=== PATIENT | female | born 1995 | race Caucasian/White ===

== ENCOUNTER 2018-12-03 20:51 | Emergency (ER) | payer SELFPAY ==
[~2018-12-03] VITALS: Ht 172.7 cm; Wt 54.0 kg
[2018-12-04 01:15] VITALS: BP 124/83
[2018-12-04 01:49] LABS: CLARITY URINE CLEAR (CLEAR); COLOR URINE YELLOW (YELLOW); KETONES URINE TRACE (NEGATIVE); LEUKOCYTE ESTERASE URINE 2+ (NEGATIVE); NITRITE URINE NEGATIVE (NEGATIVE); OCCULT BLOOD URINE NEGATIVE (NEGATIVE); PH URINE 5.5 (4.5-8.0); PROTEIN URINE NEGATIVE (NEGATIVE); UROBILINOGEN URINE 0.2 E.U./dL (0.2-1.0)
[2018-12-09 08:12] LABS: CHLAMYDIA TRACHOMATIS NAA Negative (Negative); NEISSERIA GONORRHOEAE NAA Equivocal (Negative)
== END 2018-12-04 01:25 | disposition left against medical advice (07) ==
LOC: ER 20:51
DX: N89.8 Other specified noninflammatory disorders of vagina (principal)
CPT/HCPCS: 81003; 87491; 87591; 99283

== ENCOUNTER 2024-08-10 18:17 | Inpatient (IN) | payer MEDICAID ==
[~2024-08-10] VITALS: Ht 157.5 cm; Wt 47.6 kg
[~2024-08-10 18:17] MED LIST: CEPH250C2 MT; ONDA4TAB50 MT
[2024-08-10 20:16] LABS: BASOPHILS % 0.3 % (0.0-2.0); HEMATOCRIT. 36.4 % (36.0-48.0); HEMOGLOBIN. 11.6 g/dL (12.0-16.0); MEAN CORPUSCULAR HEMOGLOBIN 26.7 pg (28.0-32.0); MEAN CORPUSCULAR VOLUME 83.5 fL (81.0-99.0); MEAN PLATELET VOLUME 9.1 fl (7.4-10.4); MONOCYTES % 5.5 % (2.0-8.0); NEUTROPHILS % 85.2 % (40.0-76.0); PLATELET 293 x1000/uL (130-400); RED BLOOD CELL COUNT 4.36 mill/uL (4.2-5.4); RED CELL DISTRIBUTION WIDTH 16.7 % (11.6-14.6); WHITE BLOOD COUNT 16.6 x1000/uL (4.5-11.0)
[2024-08-10 20:23] LABS: CARBON DIOXIDE 24 mEq/L (21-32); CHLORIDE 106 mEq/L (98-107); POTASSIUM 3.8 mEq/L (3.5-5.1); SODIUM 140 mEq/L (136-145)
[2024-08-10 20:24] LABS: CALCIUM 9.8 mg/dL (8.7-10.4)
[2024-08-10 20:29] LABS: CREATININE 1.2 mg/dL (0.6-1.0); ETHANOL BLOOD < 10 mg/dL (<10); GLUCOSE 77 mg/dL (70-105); UREA NITROGEN BLOOD 10 mg/dL (9-23)
[2024-08-10 20:30] LABS: ACETAMINOPHEN < 2 ug/mL (10-30)
[2024-08-10 20:35] LABS: HCG SCREEN NEGATIVE
[2024-08-10] MEDS: SODIUM CHLORIDE 0.9% (SEPSIS BOLUS) IV ONE (20:46)
[2024-08-10] MEDS ORDERED: DOCUSATE SODIUM 100MG CAPSULE PO PRN (22:30)
[2024-08-10] MEDS ORDERED: IPRATROPIUM/ALBUTEROL 0.5-3(2.5)MG/3ML NEB HHN PRN (22:30)
[2024-08-10] MEDS ORDERED: CLONIDINE 0.1MG TABLET PO PRN (22:30)
[2024-08-10] MEDS ORDERED: ONDANSETRON HCL 4MG/2ML INJ IV PRN (22:30)
[2024-08-10] MEDS ORDERED: HALOPERIDOL LACTATE 5MG/ML VIAL IM PRN (22:30)
[2024-08-10] MEDS ORDERED: GUAIFENESIN 200MG/10ML SUGAR FREE UDC PO PRN (22:30)
[2024-08-10] MEDS ORDERED: MAGNESIUM/ALUMINUM HYDROXIDE/SIMETHICONE 30ML UDC PO PRN (22:30)
[2024-08-10] MEDS ORDERED: ACETAMINOPHEN 325MG TABLET PO PRN (22:30)
[2024-08-10] MEDS ORDERED: LORAZEPAM 2MG/ML INJ IV PRN (22:30)
[2024-08-10] MEDS: CEFTRIAXONE 1GM/50ML 50 ML IV NR (22:30)
[2024-08-10] MEDS ORDERED: LORAZEPAM 1MG TABLET PO PRN (22:31)
[2024-08-10] MEDS: DEXT 5%/0.45% NACL 1000ML 1,000 ML IV ONE (22:45)
[2024-08-10 23:50] VITALS: BP 128/77; PULSE 76; RESP 16; TEMP 37; O2SAT 96
[2024-08-11 01:48] VITALS: BP 128/77; PULSE 76; RESP 16; TEMP 37
[2024-08-11 04:00] VITALS: BP 99/63; PULSE 85; RESP 17; TEMP 35.9; O2SAT 97
[2024-08-11 07:21] LABS: CARBON DIOXIDE 23 mEq/L (21-32); CHLORIDE 106 mEq/L (98-107); POTASSIUM 3.7 mEq/L (3.5-5.1); SODIUM 140 mEq/L (136-145)
[2024-08-11 07:26] LABS: IRON 53 ug/dL (50-170)
[2024-08-11 07:27] LABS: CREATININE 0.9 mg/dL (0.6-1.0); GLUCOSE 68 mg/dL (70-105); UREA NITROGEN BLOOD 9 mg/dL (9-23)
[2024-08-11 07:29] LABS: T4 FREE 1.35 ng/dL (0.89-1.76); THYROID STIMULATING HORMONE 0.92 uIU/mL (0.55-4.78); TOTAL IRON BINDING CAPACITY 255 ug/dl (250-425)
[2024-08-11 07:31] LABS: FERRITIN 42 ng/mL (10-291)
[2024-08-11 07:32] LABS: FOLIC ACID (FOLATE) SERUM 14.32 ng/mL (>5.38); VITAMIN B12 SERUM 344 pg/mL (211-911)
[2024-08-11 07:37] LABS: BASOPHILS % 0.6 % (0.0-2.0); EOSINOPHILS % 0.7 % (0.0-5.0); HEMATOCRIT. 31.9 % (36.0-48.0); HEMOGLOBIN. 10.3 g/dL (12.0-16.0); LYMPHOCYTES % 30.1 % (20.0-50.0); MEAN CORPUSCULAR HEMOGLOBIN 27.3 pg (28.0-32.0); MEAN CORPUSCULAR HGB CONC 32.4 g/dL (31.0-37.0); MEAN CORPUSCULAR VOLUME 84.2 fL (81.0-99.0); MEAN PLATELET VOLUME 9.5 fl (7.4-10.4); MONOCYTES % 10.5 % (2.0-8.0); NEUTROPHILS % 58.1 % (40.0-76.0); PLATELET 249 x1000/uL (130-400); RED BLOOD CELL COUNT 3.79 mill/uL (4.2-5.4); RED CELL DISTRIBUTION WIDTH 16.5 % (11.6-14.6); WHITE BLOOD COUNT 9.2 x1000/uL (4.5-11.0)
[2024-08-11 07:42] LABS: HEPATITIS B SURFACE ANTIGEN NEGATIVE (Negative)
[2024-08-11 08:00] VITALS: BP 103/67; PULSE 83; RESP 18; TEMP 36.5; O2SAT 100
[2024-08-11 08:03] LABS: HEPATITIS C AB NON REACTIVE (Neg) (Negative)
[2024-08-11] MEDS: FAMOTIDINE 20MG/2ML VIAL IV SCH (09:15)
[2024-08-11] MEDS: DEXTROSE 50% WATER 50ML SYRINGE IV ONE (09:40)
[2024-08-11] MEDS: DEXTROSE 50% WATER 50ML SYRINGE IV SCH (09:45)
[2024-08-11] MEDS: DEXT 5%/0.9% NACL 1,000 ML IV SCH (09:51)
[2024-08-11 10:48] LABS: CLARITY URINE CLEAR (CLEAR); COLOR URINE YELLOW (YELLOW); GLUCOSE URINE NEGATIVE (NEGATIVE); KETONES URINE 1+ (NEGATIVE); LEUKOCYTE ESTERASE URINE NEGATIVE (NEGATIVE); NITRITE URINE NEGATIVE (NEGATIVE); OCCULT BLOOD URINE NEGATIVE (NEGATIVE); PH URINE 5.5 (4.5-8.0); PROTEIN URINE TRACE (NEGATIVE); SPECIFIC GRAVITY URINE 1.017 (1.005-1.030); UROBILINOGEN URINE 0.2 E.U./dL (0.2-1.0)
[2024-08-11 10:54] LABS: *AMPHETAMINES SCREEN URINE PRESUMPTIVE POSITIVE (NEGATIVE); *BARBITURATES SCREEN URINE NEGATIVE (NEGATIVE); *BENZODIAZEPINES SCREEN URINE PRESUMPTIVE POSITIVE (NEGATIVE); *COCAINE SCREEN URINE NEGATIVE (NEGATIVE)
[2024-08-11 10:55] LABS: CANNABINOID URINE SCREEN PRESUMPTIVE POSITIVE (NEGATIVE); ECSTASY MDMA SCREEN URINE CONF.TEST INDICATED (NEGATIVE); METHADONE URINE SCREEN NEGATIVE (NEGATIVE); OPIATES URINE SCREEN NEGATIVE (NEGATIVE); PHENCYCLIDINE URINE SCREEN NEGATIVE (NEGATIVE)
[2024-08-11 11:15] LABS: BACTERIA URINE 2+; SQUAMOUS EPITHELIAL CELL URINE RARE /lpf (RARE/1+)
[2024-08-11 11:16] LABS: WBC URINE 0-2 /hpf (0-2)
[2024-08-11 11:19] LABS: RBC URINE 0-2 /hpf (0-2)
[2024-08-11 12:00] VITALS: BP 110/68; PULSE 91; RESP 18; TEMP 36.2; O2SAT 100
[2024-08-11 16:00] VITALS: BP 104/54; PULSE 75; RESP 18; TEMP 36.6; O2SAT 98
[2024-08-11 20:00] VITALS: BP 94/61; PULSE 79; RESP 16; TEMP 36.9; O2SAT 96
[2024-08-11] MEDS: OLANZAPINE 5MG TABLET ODT PO SCH (21:41)
[2024-08-12] VITALS: BP 96/52; PULSE 58; RESP 18; TEMP 36.7; O2SAT 94
[2024-08-12 04:41] VITALS: BP 100/64; PULSE 65; RESP 16; TEMP 36.3; O2SAT 97
[2024-08-12 08:00] VITALS: BP 104/57; PULSE 76; RESP 18; TEMP 36.9; O2SAT 98
[2024-08-12 12:02] LABS: HEMATOCRIT 29.7 % (36.0-48.0); HEMOGLOBIN 9.6 g/dL (12.0-16.0); MEAN CORPUSCULAR HEMOGLOBIN 27.4 pg (28.0-32.0); MEAN CORPUSCULAR HGB CONC 32.2 g/dL (31.0-37.0); MEAN CORPUSCULAR VOLUME 85.2 fL (81.0-99.0); PLATELET 236 x1000/uL (130-400); RED BLOOD CELL COUNT 3.49 mill/uL (4.2-5.4); RED CELL DISTRIBUTION WIDTH 16.4 % (11.6-14.6); WHITE BLOOD COUNT 5.1 x1000/uL (4.5-11.0)
[2024-08-12 12:12] LABS: CARBON DIOXIDE 22 mEq/L (21-32); CHLORIDE 110 mEq/L (98-107); POTASSIUM 4.1 mEq/L (3.5-5.1); SODIUM 140 mEq/L (136-145)
[2024-08-12 12:13] LABS: CALCIUM 8.2 mg/dL (8.7-10.4)
[2024-08-12 12:18] LABS: CREATININE 0.7 mg/dL (0.6-1.0); GLUCOSE 111 mg/dL (70-105); UREA NITROGEN BLOOD 6 mg/dL (9-23)
[2024-08-12 16:00] VITALS: BP 94/48; PULSE 92; RESP 18; TEMP 36.6; O2SAT 98
[2024-08-12 20:00] VITALS: BP 92/46; PULSE 70; RESP 18; TEMP 36.2; O2SAT 99
[2024-08-12 21:17] VITALS: BP 94/58
[2024-08-13 00:16] VITALS: BP 89/53; PULSE 73; RESP 16; TEMP 36.6; O2SAT 99
[2024-08-13] MEDS ORDERED: SODIUM CHLORIDE 0.9% 1,000 ML IV ONE (00:30)
[2024-08-13] MEDS: SODIUM CHLORIDE 0.9% 1,000 ML IV ONE (00:50)
[2024-08-13 04:00] VITALS: BP 111/73; PULSE 83; RESP 18; TEMP 36.4; O2SAT 100
[2024-08-13 08:00] VITALS: BP 128/85; PULSE 84; RESP 18; TEMP 36.8; O2SAT 99
[2024-08-13 12:00] VITALS: BP 135/86; PULSE 75; RESP 20; TEMP 36.4; O2SAT 99
[2024-08-13] MEDS ORDERED: OLAN5TAB74 PO (12:09)
[2024-08-13 12:14] VITALS: BP 128/85; PULSE 84; TEMP 98.2; O2SAT 99
== END 2024-08-13 12:30 | disposition home or self-care (01) | DRG 812 ==
LOC: ER 18:17 → 5WST 21:42 → ENRESERV 22:05
PROVIDERS: ADMIT Internal Medicine; ATTEND Internal Medicine
DX: T40.711A Poisoning by cannabis, accidental (unintentional), initial encounter (principal); G92.8 Other toxic encephalopathy; N17.9 Acute kidney failure, unspecified; F17.210 Nicotine dependence, cigarettes, uncomplicated; D50.8 Other iron deficiency anemias; D75.1 Secondary polycythemia; E16.2 Hypoglycemia, unspecified; Z20.822 Contact with and (suspected) exposure to COVID-19; F20.9 Schizophrenia, unspecified; E86.0 Dehydration; F19.10 Other psychoactive substance abuse, uncomplicated; Z91.199 Patient's noncompliance with other medical treatment and regimen due to unspecified reason; Z59.00 Homelessness unspecified; Y92.89 Other specified places as the place of occurrence of the external cause
CPT/HCPCS: 36415; 71045; 80048; 80305; 80307; 80320; 80329; 81003; 82607; 82728; 82746; 82962; 83540; 83550; 83605; 84439; 84443; 84703; 85025; 85027; 86705; 87340; 87426; 93005; 99291; J3490; J7030; J7042; G0480